=== PATIENT | female | born 1965 | race American Indian/Alaskan Native ===

== ENCOUNTER 2018-07-20 12:28 | Emergency (ER) | payer MEDICAID ==
[2018-07-20 12:42] VITALS: BMI 48.0
[2018-07-20 12:51] VITALS: TEMP 98.2
[2018-07-20] MEDS ORDERED: Morphine 4 mg/ml ISec IVP STA ×2 (13:03→15:48)
[2018-07-20] MEDS ORDERED: Sodium Chloride 0.9% 1,000 ML IV STA (13:04)
--- NOTE | 2018-07-20 13:30 | ED PDOC ---
Arrival/HPI - General Time Seen by Provider: 07/20/18 12:51 Historian: Patient - History of Present Illness Narrative History of Present Illness (Text): 07/20/18 12:51 Rosa Jose is a 53 year old female, with a past medical history of kidney stones, COPD, and CHF, who presents to the emergency department complaining of left flank pain. Patient also notes nausea but denies vomiting. Denies vaginal discharge and changes to bowel or urinary habits. Patient informs pain is consistent with kidney stones. Patient denies fevers, chills, headache, dizziness, chest pain, shortness of breath, abdominal pain, dysuria, hematuria, or any other complaints. Symptom Onset: Sudden Symptom Course: Unchanged Activities at Onset: Light Context: Home Past Medical History - Provider Review Nursing Documentation Reviewed: Yes Family/Social History - Physician Review Nursing Documentation Reviewed: Yes Family/Social History: Unknown Family HX Allergies/Home Meds Allergies/Adverse Reactions: Allergies enalapril Allergy (Verified 07/20/18 12:42) ANGIOEDEMA ipratropium [From Atrovent] Allergy (Verified 07/20/18 12:42) ANGIOEDEMA Review of Systems - Review of Systems Constitutional: absent: Fevers, Other (chills) Respiratory: absent: SOB Cardiovascular: absent: Chest Pain Gastrointestinal: Nausea. absent: Diarrhea, Vomiting, Hematochezia, Hematemesis Genitourinary Female: absent: Dysuria, Frequency, Hematuria, Urine Output Changes, Vaginal Discharge Musculoskeletal: Other (left flank pain) Neurological: absent: Headache, Dizziness Physical Exam Vital Signs Reviewed: Yes Vital Signs Temp Pulse Resp BP Pulse Ox 07/20/18 12:50 98.2 F 68 18 139/83 100 Temperature: Afebrile Blood Pressure: Normal Pulse: Regular Respiratory Rate: Normal Appearance: Positive for: Well-Appearing, Non-Toxic, Uncomfortable Pain Distress: None Mental Status: Positive for: Alert and Oriented X 3 - Systems Exam Head: Present: Atraumatic, Normocephalic Pupils: Present: PERRL Extroacular Muscles: Present: EOMI Conjunctiva: Present: Normal Mouth: Present: Moist Mucous Membranes Neck: Present: Normal Range of Motion Respiratory/Chest: Present: Clear to Auscultation, Good Air Exchange. No: Respiratory Distress, Accessory Muscle Use Cardiovascular: Present: Regular Rate and Rhythm, Normal S1, S2. No: Murmurs Abdomen: No: Tenderness, Distention, Peritoneal Signs Back: Present: CVA Tenderness (left) Upper Extremity: Present: Normal Inspection, NORMAL PULSES (distal pulses intact bilaterally), Neurovascularly Intact, Capillary Refill < 2s. No: Cyanosis, Edema Lower Extremity: Present: Normal Inspection, NORMAL PULSES (distal pulses intact bilaterally), Neurovascularly Intact, Capillary Refill < 2 s. No: Edema Neurological: Present: GCS=15, CN II-XII Intact, Speech Normal Skin: Present: Warm, Dry, Normal Color. No: Rashes Psychiatric: Present: Alert, Oriented x 3, Normal Insight, Normal Concentration Medical Decision Making ED Course and Treatment: 07/20/18 12:51 Impression: Patient is a 53 year old female, with a past medical history of kidney stones, who presents to the emergency department complaining of L flank pain. Plan: -- CT Abdomen/Pelvis W/O PO or IV Contrast -- Labs -- Chest X-Ray -- Morphine -- IV Fluids -- Zofran -- Reassess and disposition Prior Visits: Notes and results from previous visits were reviewed. Progress Notes: EKG shows NSR at 68bpm with non-specific st changes. Labs grossly normal. 07/20/18 16:42 IMPRESSION: Multiple small nonspecific mesenteric lymph nodes; rule out mesenteric adenitis.. There are also some vague infiltration changes seen in the mesentery left upper and mid abdomen No definitive radiographic evidence of nephrolithiasis or hydronephrosis. Urinary bladder wall thickening in the likely due in part due to incomplete distention however correlation with urinalysis recommended. Postoperative changes of gastric sleeve. Trace pericardial effusion or minimal pericardial granulation tissue changes. 07/20/18 16:44 Cxray negative On reevaluation patient feels better. - RAD Interpretation Radiology Orders: 07/20/18 13:02 CHEST PORTABLE [RAD] Stat 07/20/18 13:03 ABD & PELVIS W/O PO OR IV CONT [CT] Stat - Medication Orders Current Medication Orders: Sodium Chloride (Sodium Chloride 0.9%) 1,000 mls @ 999 mls/hr IV .Q1H1M STA Stop: 07/20/18 14:04 Discontinued Medications Morphine Sulfate (Morphine) 4 mg IVP STAT STA Stop: 07/20/18 13:04 - Scribe Statement The provider has reviewed the documentation as recorded by the Scribabraham Carvajal All medical record entries made by the Aayushibabraham were at my direction and personally dictated by me. I have reviewed the chart and agree that the record accurately reflects my personal performance of the history, physical exam, medical decision making, and the department course for this patient. I have also personally directed, reviewed, and agree with the discharge instructions and disposition. Disposition/Present on Arrival - Present on Arrival Any Indicators Present on Arrival: No - Disposition Have Diagnosis and Disposition been Completed?: Yes Diagnosis: Flank pain, Mesenteric adenitis Disposition: HOME/ ROUTINE Disposition Time: 16:44 Patient Plan: Discharge Patient Problems: Current Active Problems Problem Status Onset Flank pain Acute Mesenteric adenitis Acute Condition: GOOD Discharge Instructions (ExitCare): Low Back Pain in Adults, Mesenteric Lymphadenitis (DC) Additional Instructions: Follow-up with PMD within 2 days. Return to ED if condition worsens.
[2018-07-20 13:42] LABS: BASO # 0.02 K/mm3 (0.0-2.0); BASO % 0.2 % (0.0-3.0); EOS # 0.2 (0.0-0.7); EOS % 2.1 % (1.5-5.0); HEMOGLOBIN 13.8 g/dL (12.0-16.0); LYMPH # 5.2 (1.2-3.4); LYMPH % 54.8 % (22.0-35.0); MEAN CORPUSCULAR HEMOGLOBIN 26.4 pg (25.0-35.0); MEAN CORPUSCULAR HGB CONC 32.2 g/dl (31.0-37.0); MEAN PLATELET VOLUME 9.1 fl (7.0-11.0); MONO # 0.7 (0.1-0.6); MONO % 7.8 % (1.0-6.0); RBC 5.23 10^6/uL (3.5-6.1); RED CELL DISTRIBUTION WIDTH 13.7 % (11.5-14.5); WHITE BLOOD COUNT 9.5 10^3/uL (4.5-11.0)
[2018-07-20 13:52] LABS: ALB/GLOB RATIO 1.2 (1.1-1.8); ALBUMIN 4.7 g/dL (3.0-4.8); ALT/SGPT 16 U/L (7-56); AST/SGOT 37 U/L (14-36); BLOOD UREA NITROGEN 12 mg/dL (7-21); CALCIUM 9.5 mg/dL (8.4-10.5); GFR NON-AFRICAN AMERICAN > 60; LIPASE 155 U/L (23-300)
[2018-07-20 14:03] LABS: TROPONIN I < 0.01 ng/mL
[2018-07-20 14:32] LABS: URINE BILIRUBIN NEGATIVE (NEGATIVE); URINE BLOOD NEGATIVE (NEGATIVE); URINE GLUCOSE (UA) NEGATIVE (NEGATIVE); URINE LEUKOCYTE ESTERASE NEGATIVE Leu/uL (NEGATIVE); URINE PROTEIN NEGATIVE mg/dL (<30 mg/dL); URINE UROBILINOGEN 0.2 E.U./dL (<1 E.U./dL)
[2018-07-20 14:33] LABS: URINE APPEARANCE CLEAR (CLEAR); URINE COLOR YELLOW (YELLOW)
--- NOTE | 2018-07-20 16:43 | CT ---
Date of service: 07/20/2018 PROCEDURE: CT abdomen and pelvis HISTORY: Left flank pain. COMPARISON: No prior study available comparison. TECHNIQUE: Contiguous axial images of the abdomen and pelvis performed without oral or intravenous contrast material. Additional 2D sagittal and coronal reformats generated. Radiation dose: Total exam DLP = 1073.6 mGy-cm. This CT exam was performed using one or more of the following dose reduction techniques: Automated exposure control, adjustment of the mA and/or kV according to patient size, and/or use of iterative reconstruction technique. FINDINGS: LOWER THORAX: Heart size upper limits of normal. Tiny and/or pericardial granulation tissue. There is a small pericardial effusion with slight wall thickening of the distal esophagus likely due to protrusion gastric mucosa. Minimal linear scarring and/or atelectasis both lung bases. LIVER: Liver exhibits normal size and attenuation pattern without mass collection or calcification GALLBLADDER AND BILE DUCTS: Gallbladder physiologically distended. No evidence of intraluminal gallbladder calculi. PANCREAS: Unremarkable. No mass. No ductal dilatation. SPLEEN: Unremarkable. No splenomegaly. ADRENALS: No adrenal lesions are identified. KIDNEYS AND URETERS: Kidneys demonstrate relatively symmetric size. No evidence of nephrolithiasis or hydronephrosis. No obvious renal mass or collection seen on this noncontrast study no definitive radiographic evidence of ureteral calculi however small calcifications are seen in the region of the left and possibly right adnexa. BLADDER: Urinary bladder is incompletely distended with slight thick-walled appearance. Correlation with urinalysis recommended. REPRODUCTIVE: Questionable of bilateral adnexal calcifications. APPENDIX: Appendix is not positively identified however no obvious inflammatory changes right lower quadrant of the abdomen. BOWEL: Evaluation of the bowel is somewhat limited due to the lack of oral contrast material.. Apparent postoperative changes of gastric sleeve. Stomach is incompletely distended. Visualized loops of small bowel exhibit normal contour and caliber. No evidence of acute mechanical small bowel obstruction. Stool and air seen throughout the large bowel. PERITONEUM: No evidence of free intraperitoneal air. No free or loculated fluid collections. There is small fat containing umbilical hernia. LYMPH NODES: There are multiple small nonspecific mesenteric lymph nodes. Rule out mesenteric adenitis. There are also some mild mesenteric infiltration changes seen in the left upper and mid abdomen. VASCULATURE: Unremarkable. No aortic aneurysm. Minimal aortic atherosclerotic calcification or mural plaque present. BONES: Mild multilevel degenerative spondylosis of the lower thoracic and lumbar spine. OTHER FINDINGS: None. IMPRESSION: Multiple small nonspecific mesenteric lymph nodes; rule out mesenteric adenitis.. There are also some vague infiltration changes seen in the mesentery left upper and mid abdomen No definitive radiographic evidence of nephrolithiasis or hydronephrosis. Urinary bladder wall thickening in the likely due in part due to incomplete distention however correlation with urinalysis recommended. Postoperative changes of gastric sleeve. Trace pericardial effusion or minimal pericardial granulation tissue changes.
--- NOTE | 2018-07-20 16:44 | RAD ---
Date of service: 07/20/2018 HISTORY: chest pain COMPARISON: No prior study available for comparison TECHNIQUE: 1 view obtained. FINDINGS: LUNGS: No active pulmonary disease. PLEURA: No significant pleural effusion identified, no pneumothorax apparent. CARDIOVASCULAR: No aortic atherosclerotic calcification present. Borderline cardiomegaly no pulmonary vascular congestion. OSSEOUS STRUCTURES: No significant abnormalities. VISUALIZED UPPER ABDOMEN: Normal. OTHER FINDINGS: None. IMPRESSION: No active disease.
[2018-07-20 17:06] VITALS: BP 142/82; PULSE 70; RESP 18; O2SAT 98
--- NOTE | 2018-07-20 18:15 | CARD ---
APPROVED REPORT Date of service: 07/20/2018 EKG Measurement Heart [id number] <Conclusion> Poor data quality, interpretation may be adversely affected Normal sinus rhythm Nonspecific T wave abnormality Abnormal ECG
== END 2018-07-20 17:40 | disposition home or self-care (01) ==
LOC: ED 12:28 → MERGE 12:28 → ED 17:40
DX: I88.0 Nonspecific mesenteric lymphadenitis (principal); J44.9 Chronic obstructive pulmonary disease, unspecified; Z87.442 Personal history of urinary calculi
CPT/HCPCS: 71045; 74176; 80053; 81003; 83690; 83735; 84100; 84484; 85025; 87086; 93005; 96361; 96374; 96375; 96376; 99284; J2270; J2405; J7030